=== PATIENT | female | born 1995 | race Caucasian/White ===

== ENCOUNTER 2020-05-08 07:47 | Day surgery (SDC) | payer OTHER ==
[~2020-05-08] VITALS: Ht 162.6 cm; Wt 58.0 kg
[~2020-05-08 07:47] MED LIST: DESO1TAB70 PO
[2020-05-08] MEDS ORDERED: CHLORHEXIDINE 15 ML UDC MM STA (08:33)
[2020-05-08] MEDS ORDERED: LACTATED RINGERS 1,000 ML IV SCH (08:33)
[2020-05-08 08:34] VITALS: BP 120/90
[2020-05-08] MEDS ORDERED: FENTANYL PF 100 MCG/2ML ONE ×2 (08:45→10:04)
[2020-05-08] MEDS ORDERED: MIDAZOLAM 1 MG/ML, 2ML ONE (08:45)
[2020-05-08] MEDS ORDERED: SUCCINYLCHOLINE 20 MG/ML, 10ML ONE (08:48)
[2020-05-08] MEDS ORDERED: DEXAMETHASONE 4 MG/ML, 1ML ONE (08:48)
[2020-05-08] MEDS ORDERED: ONDANSETRON 2MG/ML, 2ML ONE (08:48)
[2020-05-08] MEDS ORDERED: GLYCOPYRROLATE 0.2MG/1ML, 5ML ONE (08:48)
[2020-05-08] MEDS ORDERED: CEFAZOLIN 1,000 MG ONE (08:48)
[2020-05-08] MEDS ORDERED: ROCURONIUM 10MG/ML,5ML ONE (08:48)
[2020-05-08] MEDS ORDERED: PROPOFOL 10 MG/ML, 20ML ONE (08:48)
[2020-05-08] MEDS ORDERED: NEOSTIGMINE 1 MG/ML, 10ML ONE (08:48)
[2020-05-08 08:54] LABS: HCG UR SG 1.013 (1.003-1.030)
[2020-05-08] MEDS ORDERED: HYDROcodone/APAP 7.5-325MG/15ML UDC PO PRN (09:00)
[2020-05-08] MEDS ORDERED: HYDROmorphone 1 MG/ML, 1ML INJ IVPush PRN (09:00)
[2020-05-08] MEDS ORDERED: FENTANYL PF 100 MCG/2ML IV PRN (09:00)
[2020-05-08] MEDS ORDERED: PROMETHAZINE 25 MG/ML, 1ML IVPush PRN (09:00)
[2020-05-08] MEDS ORDERED: OXYcodone 5 MG/5 ML ORAL.SOL UDC PO PRN (09:00)
[2020-05-08] MEDS ORDERED: MEPERIDINE/PF 25MG/0.5ML IVPush PRN (09:00)
[2020-05-08] MEDS ORDERED: OXYcodone 5 MG/5 ML ORAL.SOL UDC ONE (10:04)
[2020-05-08] MEDS ORDERED: MEPERIDINE/PF 25MG/ML,1ML ONE (10:04)
== END 2020-05-08 12:15 | disposition home or self-care (01) ==
LOC: OUT 07:47
PROVIDERS: ATTEND Otolaryngology
DX: J35.01 Chronic tonsillitis (principal); Z91.011 Allergy to milk products; Z20.828 Contact with and (suspected) exposure to other viral communicable diseases; Z79.899 Other long term (current) drug therapy
CPT/HCPCS: 42826; 81025; 87635; 88304; J0330; J0690; J1100; J2175; J2250; J2405; J2704; J2710; J3010; J7120

== ENCOUNTER 2020-05-12 11:15 | Emergency (ER) | payer OTHER ==
[~2020-05-12] VITALS: Ht 162.6 cm; Wt 60.0 kg
[2020-05-12] MEDS ORDERED: HYDROcodone/APAP 7.5-325MG/15ML UDC PO ONE (12:00)
[2020-05-12] MEDS ORDERED: maalox/diphenh/lido/sucralfate 5 ML PO PRN (12:00)
[2020-05-12] MEDS ORDERED: HYDROcodone/APAP 7.5-325MG/15ML UDC ONE (12:00)
[2020-05-12 12:05] LABS: BASOPHILS % (AUTO) 1 % (0-1); EOSINOPHILS % (AUTO) 1 % (1-7); LYMPHOCYTES % (AUTO) 30 % (22-44); MEAN CORPUSCULAR HEMOGLOBIN 30.6 pg (27.0-34.8); MEAN CORPUSCULAR HGB CONC 33.9 g/dL (32.4-35.8); MEAN PLATELET VOLUME 9.8 fL (7.4-10.4); MONOCYTES % (AUTO) 6 % (2-9); NEUTROPHILS % (AUTO) 63 % (42-75); PLATELET COUNT 293 x10^3/uL (130-400); RED BLOOD COUNT 4.35 x10^6/uL (3.82-5.3); RED CELL DISTRIBUTION WIDTH 12.3 % (9.6-15.2)
[2020-05-12 12:06] LABS: MD NO
--- NOTE | 2020-05-12 12:17 | NUR ---
REPORTS FEELING WEAK AND DIZZY ERP AWARE AND FLUIDS STARTED
[2020-05-12] MEDS ORDERED: SODIUM CHLORIDE 0.9% 1,000ML IVBOLUS ONE (12:30)
--- NOTE | 2020-05-12 13:26 | NUR ---
RECVD REPORT FROM SUKHJINDER CASTANEDA. PLAN OF CARE DISCUSSED
[2020-05-12 14:10] VITALS: BP 101/62
--- NOTE | 2020-05-12 14:10 | NUR ---
Patient/Caregiver given discharge instructions and they have confirmed that they understand the instructions. Patient ambulatory with steady gait.
== END 2020-05-12 14:12 | disposition home or self-care (01) ==
LOC: ED 11:43
DX: R04.2 Hemoptysis (principal); R42 Dizziness and giddiness; Z90.89 Acquired absence of other organs
CPT/HCPCS: 36415; 85025; 99283; J7030